=== PATIENT | female | born 1960 | race Caucasian/White ===

== ENCOUNTER 2024-01-01 15:29 | Emergency (ER) | payer BC ==
[2024-01-01 16:01] VITALS: BP 125/80; PULSE 68; RESP 16; TEMP 98.6
[2024-01-01] MEDS: ACETAMINOPHEN 500 MG TABLET (FP) PO ONE (16:13)
== END 2024-01-01 17:36 | disposition home or self-care (01) ==
LOC: FER 15:29
PROC: 2W3DX1Z Immobilization of Left Lower Arm using Splint (ICD-10-PCS; principal; 2024-01-01)
DX: S52.502A Unspecified fracture of the lower end of left radius, initial encounter for closed fracture (principal); W18.30XA Fall on same level, unspecified, initial encounter; Y93.73 Activity, racquet and hand sports
CPT/HCPCS: 73110-TC-LT-FY; 99283-25